=== PATIENT | male | born 1995 | race Caucasian/White ===

== ENCOUNTER 2016-03-31 22:51 | Emergency (ER) | payer OTHER | END 2016-04-01 00:25 | disposition home or self-care (01) | LOC: ER 22:51 | DX: S60.052A Contusion of left little finger without damage to nail, initial encounter (principal); W22.8XXA Striking against or struck by other objects, initial encounter; Y93.67 Activity, basketball; Y92.310 Basketball court as the place of occurrence of the external cause ==